=== PATIENT | male | born 1935 | race Native Hawaiian/Other Pacific Islander ===

== ENCOUNTER 2017-07-25 11:21 | Outpatient (CLI) | payer OTHER ==
[2017-07-25 12:12] LABS: PLATELET COUNT 199 K/uL (142-355)
[2017-07-25 12:43] LABS: POTASSIUM 4.2 mmol/L (3.6-5.2)
== END 2017-07-25 22:05 | disposition home or self-care (01) ==
LOC: LABW 11:21
PROVIDERS: Internal Medicine
DX: N18.4 Chronic kidney disease, stage 4 (severe) (principal); E11.9 Type 2 diabetes mellitus without complications; Z79.899 Other long term (current) drug therapy; Z51.81 Encounter for therapeutic drug level monitoring
CPT/HCPCS: 36415; 80053; 81000; 82043; 82306; 82330; 82570; 82607; 83036; 83735; 83970; 84100; 84155; 84439; 84443; 85027; 87077; 87086; 87088; 87186

== ENCOUNTER 2018-05-23 12:36 | Outpatient (CLI) | payer OTHER ==
[2018-05-23 13:06] LABS: PLATELET COUNT 207 K/uL (142-355)
== END 2018-05-23 21:08 | disposition home or self-care (01) ==
LOC: LABW 12:36
PROVIDERS: Internal Medicine
DX: I12.9 Hypertensive chronic kidney disease with stage 1 through stage 4 chronic kidney disease, or unspecified chronic kidney disease (principal); E11.22 Type 2 diabetes mellitus with diabetic chronic kidney disease; N18.4 Chronic kidney disease, stage 4 (severe); R82.998 Other abnormal findings in urine
CPT/HCPCS: 36415; 80053; 81000; 82043; 82306; 82570; 83735; 83970; 84100; 84155; 85027; 87077; 87086; 87088; 87186

== ENCOUNTER 2018-08-23 09:50 | Outpatient (CLI) | payer OTHER ==
[2018-08-23 10:33] LABS: PLATELET COUNT 214 K/uL (142-355)
[2018-08-23 10:44] LABS: POTASSIUM 3.7 mmol/L (3.6-5.2)
== END 2018-08-23 19:19 | disposition home or self-care (01) ==
LOC: LABW 09:50
PROVIDERS: Internal Medicine
DX: N18.4 Chronic kidney disease, stage 4 (severe) (principal)
CPT/HCPCS: 36415; 80053; 81000; 82043; 82330; 82570; 83735; 84100; 84155; 85027

== ENCOUNTER 2018-12-25 09:26 | Outpatient (CLI) | payer OTHER ==
[2018-12-25 10:04] LABS: PLATELET COUNT 199 K/uL (142-355)
[2018-12-25 11:01] LABS: POTASSIUM 3.7 mmol/L (3.6-5.2)
== END 2018-12-25 19:13 | disposition home or self-care (01) ==
LOC: LABW 09:26
PROVIDERS: Internal Medicine
DX: N18.4 Chronic kidney disease, stage 4 (severe) (principal)
CPT/HCPCS: 36415; 80053; 81000; 82330; 83735; 84100; 84155; 85027

== ENCOUNTER 2019-03-29 09:24 | Outpatient (CLI) | payer OTHER ==
[2019-03-29 10:18] LABS: PLATELET COUNT 194 K/uL (142-355)
[2019-03-29 10:26] LABS: POTASSIUM 3.6 mmol/L (3.6-5.2)
== END 2019-03-29 19:38 | disposition home or self-care (01) ==
LOC: LABW 09:24
PROVIDERS: Internal Medicine
DX: N18.4 Chronic kidney disease, stage 4 (severe) (principal); E03.8 Other specified hypothyroidism
CPT/HCPCS: 36415; 80053; 81000; 82330; 82570; 83735; 84100; 84155; 84439; 84443; 85027